=== PATIENT | male | born 1975 | race Caucasian/White ===

== ENCOUNTER 2020-11-20 14:26 | Emergency (ER) | payer BC ==
[2020-11-20 14:32] VITALS: BP 135/83
--- NOTE | 2020-11-20 14:58 | ER Document Report ---
ED Medical Screen (RME) - General Chief Complaint: Elbow Injury Stated Complaint: LEFT ELBOW PAIN,SWELLING Primary Care Provider: HOA WOO MD [Primary Care Provider] - Follow up as needed TRAVEL OUTSIDE OF THE [place] IN LAST 30 DAYS: No - HPI Notes: 11/20/20 14:53 Rapid Medical Exam HPI: 45yo male c/o left elbow redness, swelling, and pain X 4 days. denies in jury or trauma. inc pain w/ palpation and rom. reports subjective fevers but have not checked it at home. denies IV drug use. Pt is on immunosuppressants due to crohns disease. has itchy skin rash over extremities X 5 months. says he has been on 2 or 3 rounds of po antibiotics w/o relief and also what sounds like scabies treatment w/o relief. Physical Exam: GENERAL: Well-appearing, well-nourished and in no acute distress. HEAD: Atraumatic, normocephalic. ENT: Moist mucous membranes. RESP: Respirations even and unlabored CV- Regular rate. NEURO: No focal neurological deficits. Moves all extremities spontaneously and on command. msk- left elbow erythema/swelling, ttp. mild dec in ROM due to pain skin- diffuse superficial skin ulcerations <1cm in size over all extremities. My involvement in this patients care was limited to a rapid initial assessment. A comprehensive ED assessment and evaluation of the patient, analysis of test results, treatment, and completion of the medical decision making process will be performed by other ER providers. - Related Data Allergies/Adverse Reactions: aspirin [Aspirin] Allergy (Intermediate, Verified 05/22/15 11:33) rash Past Medical History - Past Medical History Cardiac Medical History: Reports: Hx Hypertension Denies: Hx Coronary Artery Disease, Hx Heart Attack Pulmonary Medical History: Denies: Hx Asthma, Hx Bronchitis, Hx COPD, Hx Pneumonia Neurological Medical History: Denies: Hx Cerebrovascular Accident, Hx Seizures GI Medical History: Reports: Hx Crohn's Disease Musculoskeltal Medical History: Reports Hx Arthritis Past Surgical History: Reports: Hx Orthopedic Surgery - laminectomy discectomy L4, L5 - Immunizations Hx Diphtheria, Pertussis, Tetanus Vaccination: Yes Physical Exam - Vital signs Vitals: Temp Pulse Resp BP Pulse Ox 98.8 F 91 16 135/83 H 100 11/20/20 14:30 11/20/20 14:30 11/20/20 14:30 11/20/20 14:30 11/20/20 14:30 Course - Vital Signs Vital signs: Temp Pulse Resp BP Pulse Ox 98.8 F 91 16 135/83 H 100 11/20/20 14:30 11/20/20 14:30 11/20/20 14:30 11/20/20 14:30 11/20/20 14:30 Doctor's Discharge - Discharge Referrals: HOA WOO MD [Primary Care Provider] - Follow up as needed
[2020-11-20 15:34] LABS: ABSOLUTE BASOPHILS # (AUTO) 0.1 10^3/uL (0.0-0.2); ABSOLUTE EOSINOPHILS # (AUTO) 0.4 10^3/uL (0.0-0.6); ABSOLUTE LYMPHOCYTES (AUTO) 1.3 10^3/uL (0.5-4.7); ABSOLUTE MONOCYTES (AUTO) 0.7 10^3/uL (0.1-1.4); ABSOLUTE NEUT (AUTO) 6.4 10^3/uL (1.7-8.2); EOSINOPHILS % (AUTO) 4.4 % (0-6); HEMOGLOBIN 13.1 g/dL (13.5-17.0); LYMPHOCYTES % (AUTO) 14.6 % (13-45); MEAN CORPUSCULAR HEMOGLOBIN 30.6 pg (27.0-33.4); MEAN CORPUSCULAR HGB CONC 34.5 g/dL (32.0-36.0); MEAN CORPUSCULAR VOLUME 89 fl (80-97); MONOCYTES % (AUTO) 8.1 % (3-13); PLATELET COUNT 407 10^3/uL (150-450); RED BLOOD COUNT 4.29 10^6/uL (4.35-5.55); RED CELL DISTRIBUTION WIDTH 14.5 % (11.5-14.0); SEGMENTED NEUTROPHILS % (AUTO) 71.9 % (42-78); TOTAL CELLS COUNTED % (AUTO) 100 %; WHITE BLOOD COUNT 8.9 10^3/uL (4.0-10.5)
--- NOTE | 2020-11-20 15:38 | RADIOLOGY REPORT (SQ) ---
EXAM DESCRIPTION: ELBOW LEFT AP/LATERAL IMAGES COMPLETED DATE/TIME: 11/20/2020 3:11 pm REASON FOR STUDY: atraumatic left elbow redness/swelling COMPARISON: None. NUMBER OF VIEWS: Two view. TECHNIQUE: AP and lateral radiographic images acquired of the left elbow. LIMITATIONS: None. FINDINGS: MINERALIZATION: Normal. BONES: No acute fracture or dislocation. No worrisome bone lesions. No significant osteophytes. JOINT: No effusions. SOFT TISSUES: No soft tissue swelling. No foreign body. OTHER: No other significant finding. IMPRESSION: NEGATIVE STUDY OF THE LEFT ELBOW. NO EXPLANATION FOR PAIN. TECHNICAL DOCUMENTATION: JOB ID: [id number] 2010 [employer]- All Rights Reserved. Reading location - IP/workstation name: [email or web address]
[2020-11-20 16:00] LABS: ANION GAP 7 (5-19); BLOOD UREA NITROGEN 14 mg/dL (7-20); C-REACTIVE PROTEIN 18.3 mg/L (<10.0); CALCIUM 9.3 mg/dL (8.4-10.2); CARBON DIOXIDE 31 mmol/L (22-30); CHLORIDE 96 mmol/L (98-107); GLUCOSE 127 mg/dL (75-110); POTASSIUM 4.4 mmol/L (3.6-5.0)
[2020-11-20 16:14] LABS: ERYTHROCYTE SEDIMENTATION RATE 42 mm/hr (0-15)
--- NOTE | 2020-11-20 17:09 | ER Document Report ---
ED Extremity Problem, Upper - General Chief Complaint: Elbow Injury Stated Complaint: LEFT ELBOW PAIN,SWELLING Time Seen by Provider: 11/20/20 17:08 Primary Care Provider: HOA WOO MD [PEDIATRICS] - Follow up in 1 week Notes: Patient is a 45-year-old male who presents emergency department with a chief complaint of left elbow pain. Patient reports that he had a large wound to his left elbow, which expressed purulent drainage. States that his elbow is actually a lot smaller than it was a few days ago. He was placed on Bactrim and Keflex and permethrin cream to help with this. He recently was on ciprofloxacin. He has not know if he has been on clindamycin. States that he has on and off chills. States that he just got out of [facility] about 8 months ago and since then, he has had this rash. States it started on his back and then spread to the rest of his body. Denies any injury to his elbow. Denies being sexually active. Mother has been in close contact, but she does not have these symptoms. Denies any history of IVDA. TRAVEL OUTSIDE OF THE [place] IN LAST 30 DAYS: No - Related Data Allergies/Adverse Reactions: aspirin [Aspirin] Allergy (Intermediate, Verified 05/22/15 11:33) rash Home Medications: imuran, asacol, medicine for BP Past Medical History - Social History Smoking Status: Former Smoker Chew tobacco use (# tins/day): No Frequency of alcohol use: None Drug Abuse: Marijuana Family History: Reviewed & Not Pertinent - Past Medical History Cardiac Medical History: Reports: Hx Hypertension Denies: Hx Coronary Artery Disease, Hx Heart Attack Pulmonary Medical History: Denies: Hx Asthma, Hx Bronchitis, Hx COPD, Hx Pneumonia Neurological Medical History: Denies: Hx Cerebrovascular Accident, Hx Seizures GI Medical History: Reports: Hx Crohn's Disease Musculoskeletal Medical History: Reports Hx Arthritis Past Surgical History: Reports: Hx Orthopedic Surgery - laminectomy discectomy L4, L5 - Immunizations Hx Diphtheria, Pertussis, Tetanus Vaccination: Yes Review of Systems - Review of Systems Notes: Constitutional: Negative for fever. Cardiovascular: Negative for chest pain. Respiratory: Negative for shortness of breath. Gastrointestinal: Negative for vomiting Musculoskeletal: Negative for back pain. See HPI. Skin: See HPI. Neurological: Negative for weakness or numbness. 10 point ROS negative except as marked above and in HPI. Physical Exam - Vital signs Vitals: Temp Pulse Resp BP Pulse Ox 98.8 F 91 16 135/83 H 100 11/20/20 14:30 11/20/20 14:30 11/20/20 14:30 11/20/20 14:30 11/20/20 14:30 - Notes Notes: PHYSICAL EXAMINATION: GENERAL: Very thin and in no acute distress. HEAD: Atraumatic, normocephalic. EYES: sclera anicteric, conjunctiva are normal. ENT: Moist mucous membranes. NECK: Normal range of motion LUNGS: Normal work of breathing HEART: 2+ radial pulses bilaterally EXTREMITIES: no pitting or edema. No cyanosis. NEUROLOGICAL: No focal neurological deficits. Moves all extremities spontaneously and on command. PSYCH: Normal mood, normal affect. SKIN: Warm, Dry, muliple circular lesions noted over entire body. Slight surrounding erythema around each lesion. Course - Re-evaluation Re-evalutation: 11/20/20 Left elbow x-ray does not show any acute findings. Differential diagnosis includes scabies, syphilis, MRSA infection and, cellulitis. His left elbow does not appear to have an abscess that is drainable. Patient reports that the area has actually cleared at and used to be bigger. He reported purulent drainage from the left elbow. He has multiple scabs all over the place, from head to toe. We will give him a shot of penicillin to cover syphilis. We will also start him on clindamycin. Patient does have an appointment with dermatology in January, and a advised him to keep that appointment and not miss it. The patient and his mother are both in agreement with this plan. Have a low suspicion for scabies, as the patient does live with his mother and she does not have the symptoms. Follow-up precautions were given. Verbal discharge instructions were given to the patient. They verbalized understanding. They are stable for discharge. - Vital Signs Vital signs: Temp Pulse Resp BP Pulse Ox 98.8 F 91 16 135/83 H 100 11/20/20 14:30 11/20/20 14:30 11/20/20 14:30 11/20/20 14:30 11/20/20 14:30 - Laboratory Results Result Diagrams: 11/20/20 15:16 11/20/20 15:16 Laboratory Results Interpreted: 11/20/20 11/20/20 15:16 15:16 RBC 4.29 L Hgb 13.1 L RDW 14.5 H ESR 42 H Sodium 134.2 L Chloride 96 L Carbon Dioxide 31 H Glucose 127 H C-Reactive Protein 18.3 H Critical Laboratory Results Reviewed: No Critical Results - Radiology Results Critical Radiology Results Reviewed: No Critical Results Discharge - Discharge Clinical Impression: Elbow pain, left, Skin rash Condition: Stable Disposition: HOME, SELF-CARE Additional Instructions: You are seen today in the emergency department for a rash to your skin. You received a dose of penicillin here in the emergency department. Take the clindamycin as prescribed. Use the Vistaril to help with itching. Follow-up appointment with dermatology. Follow-up with your primary care provider. Prescriptions: Clindamycin HCl [Cleocin 150 mg Capsule] 300 mg PO Q6 7 Days #56 capsule Hydroxyzine Pamoate [Vistaril 25 mg Capsule] 25 mg PO Q6HP PRN #30 capsule PRN Reason: Referrals: HOA WOO MD [PEDIATRICS] - Follow up in 1 week
[2020-11-20] MEDS ORDERED: PENICILLIN G BENZATHINE 1.2 MILLION UNIT/2 ML DISP.SYRIN IM ONE (18:17)
== END 2020-11-20 18:34 | disposition home or self-care (01) ==
LOC: ER 14:26
DX: M25.522 Pain in left elbow (principal); R21 Rash and other nonspecific skin eruption; R23.4 Changes in skin texture; R68.83 Chills (without fever); F12.10 Cannabis abuse, uncomplicated; I10 Essential (primary) hypertension; M19.90 Unspecified osteoarthritis, unspecified site; Z79.899 Other long term (current) drug therapy; Z87.891 Personal history of nicotine dependence; Z88.8 Allergy status to other drugs, medicaments and biological substances
CPT/HCPCS: 99284; 96372; 36415; 85025; 85652; 86140; 80048; 73070; J0561